=== PATIENT | male | born 1960 | race Caucasian/White ===

== ENCOUNTER 2022-11-20 04:10 | Day surgery (SDC) | payer OTHER ==
[2022-11-18 14:32] VITALS: BMI 23.0
[2022-11-20 12:26] VITALS: TEMP 97.5
[2022-11-20 13:01] VITALS: BP 121/67; PULSE 58; RESP 15
== END 2022-11-20 13:11 | disposition home or self-care (01) ==
LOC: JASU-ENDO 04:10
PROVIDERS: ATTEND Internal Medicine Gastroenterology
PROC: 0DB78ZX Excision of Stomach, Pylorus, Via Natural or Artificial Opening Endoscopic, Diagnostic (ICD-10-PCS; 2022-11-20)
PROC: 0DB68ZX Excision of Stomach, Via Natural or Artificial Opening Endoscopic, Diagnostic (ICD-10-PCS; principal; 2022-11-20 11:15)
DX: K29.50 Unspecified chronic gastritis without bleeding (principal); K31.9 Disease of stomach and duodenum, unspecified
CPT/HCPCS: 88305-TC; 88341-TC; 88342-TC

== ENCOUNTER 2022-11-27 04:11 | Day surgery (SDC) | payer OTHER ==
[2022-11-25 16:21] VITALS: BMI 25.0
[2022-11-27 10:59] VITALS: RESP 18
[2022-11-27 11:01] VITALS: BP 120/67; PULSE 86; TEMP 98
== END 2022-11-27 10:53 | disposition home or self-care (01) ==
LOC: JASU-ENDO 04:11
PROVIDERS: ATTEND Internal Medicine Gastroenterology
PROC: 0DJD8ZZ Inspection of Lower Intestinal Tract, Via Natural or Artificial Opening Endoscopic (ICD-10-PCS; principal; 2022-11-27 09:30)
DX: Z12.11 Encounter for screening for malignant neoplasm of colon (principal); K64.8 Other hemorrhoids; K57.30 Diverticulosis of large intestine without perforation or abscess without bleeding